=== PATIENT | male | born 1990 | race African-American/Black ===

== ENCOUNTER 2022-02-28 07:26 | Outpatient (CLI) | payer OTHER, SELFPAY ==
--- NOTE | 2022-02-28 10:03 | WPDNEUROLOGY ---
Neurology EEG Report General Information Date of Study: 02/28/22 TEST eeg DIAGNOSIS epilepsy CONDITION OF RECORDING Awake drowsy and sleep EEG NUMBER [id number] CLINICAL HISTORY Patient reports he has had 2 seizures in the last 2 months he had seizure when he was little but had not had 1 in many years EEG DESCRIPTION basic resting occipital frequency consists of low to medium voltage 10 to 11 hertz per 2nd alpha admixed with low-voltage 15 to 18 hertz per 2nd beta. Bilateral symmetrical sleep activity seen during sleep. Photic stimulation produced normal drive. Hyperventilation not done. Non paroxysmal. Nonfocal. Non Lateralizing. IMPRESSION Normal recall
== END 2022-02-28 07:27 | disposition home or self-care (01) ==
PROVIDERS: Visit Provider Psychiatry & Neurology Neurology
DX: G40.909 Epilepsy, unspecified, not intractable, without status epilepticus (principal)
CPT/HCPCS: 95816

== ENCOUNTER 2022-03-01 06:53 | Outpatient (CLI) | payer OTHER, SELFPAY ==
--- NOTE | ~2022-03-01 | MR_ITS ---
EXAMINATION: MR brain/brain stem wo/w con DATE: 03/01/2022 07:59 INDICATION: Grand mal seizure. TECHNIQUE: Magnetic resonance imaging (MRI) of the brain and brainstem was performed without and with 15 mL MultiHance intravenous contrast. COMPARISON: None. FINDINGS: The hippocampi are normal and symmetric. There is no intracranial hemorrhage, acute infarct ion, or abnormal intracranial mass lesion. The ventricles are normal in size. The mastoid air cells a re normal. The orbits are normal. The paranasal sinuses are clear. IMPRESSION: 1. Normal brain. Reviewed, dictated and finalized at location A. IMPRESSION: 1. Normal brain.
[2022-03-01 07:28] LABS: Estimated Glomerular Filt Rate > 60
== END 2022-03-01 06:54 | disposition home or self-care (01) ==
PROVIDERS: Visit Provider Psychiatry & Neurology Neurology
DX: G40.409 Other generalized epilepsy and epileptic syndromes, not intractable, without status epilepticus (principal)
CPT/HCPCS: 70553; A9577

== ENCOUNTER 2022-03-22 23:36 | Emergency (ER) | payer OTHER, SELFPAY ==
[2022-03-22 23:38] VITALS: BP 145/71; PULSE 148; RESP 22; TEMP 36.9; O2SAT 100
--- NOTE | 2022-03-22 23:46 | ECG_ITS ---
Measurements Intervals [place] Rate: 130 P: 55 FL: 169 QRS: 60 QRSD: 95 T: 5 QT: 319 QTc: 470 Interpretive Statements SINUS TACHYCARDIA NONSPECIFIC ST & T-WAVE ABNORMALITY ABNORMAL RHYTHM ECG NO PREVIOUS ECG AVAILABLE FOR COMPARISON Electronically Signed On 03-23-2022 18:13:00 CDT by Barby Hadley M.D.
[2022-03-23 00:11] LABS: Basophils Absolute Auto 0.1 K/mm3 (0.0-0.1); Basophils Percent Auto 0.6 % (0.2-1.2); Eosinophils Absolute Auto 0.1 K/mm3 (0-0.3); Eosinophils Percent Auto 1.3 % (0-4.4); Hematocrit 48.3 % (42.0-52.0); Hemoglobin 15.3 g/dL (14.0-18.0); Immature Granulocyte Absolute 0.09 K/mm3 (0.00-0.031); Immature Granulocyte Percent A 0.9 % (0-0.5); Lymphocytes Absolute Auto 4.53 K/mm3 (0.9-3.2); Lymphocytes Percent Auto 46.6 % (18.3-44.2); Mean Corpuscular HGB Conc 31.7 g/dl (32-36); Mean Corpuscular Hemoglobin 21.8 pg (26-34); Mean Corpuscular Volume 68.9 fl (80-100); Mean Platelet Volume 10.9 fl (7.4-10.4); Monocytes Absolute Auto 0.9 K/mm3 (0.1-0.6); Monocytes Percent Auto 9.1 % (2.6-8.5); Neutrophils Percent Auto 41.5 % (45.5-73.1); Platelet Count Result 246 k/mm3 (150-375); Red Blood Count 7.01 M/mm3 (4.6-6.20); Red Cell Distribution Width 16.9 % (11.5-14.5); White Blood Count 9.7 K/mm3 (4.5-10.0)
--- NOTE | 2022-03-23 00:12 | ED.SEIZURE ---
HPI - Seizure General Chief Complaint: Seizure <GREG Padilla Last Filed: 03/23/22 02:01> Stated Complaint: SZ LIKE ACTIVITY <GREG Padilla Last Filed: 03/23/22 02:01> Time Seen by Provider: 03/22/22 23:51 <GREG Padilla Last Filed: 03/23/22 02:01> Source: patient <GREG Padilla Last Filed: 03/23/22 02:01> Mode of arrival: ambulatory <GREG Padilla Last Filed: 03/23/22 02:01> Limitations: no limitations <GREG Padilla Last Filed: 03/23/22 02:01> History of Present Illness HPI Narrative: This is a 31 year old male that presents to the ER for a seizure that occurred tonight. Patient's friend reports he witnessed generalized seizure like activity that lasted for about 2 minutes. Reportedly upon EMS arrival patient was postictal. Patient is currently alert and oriented. Patient reports he has recently had several seizures. He has been evaluated by neurology for this. He had an MRI and EEG without concerning findings. Reports he thought he was supposed to be started on antiepileptic medication, but has not received a prescription yet. Denies any current complaints. <GREG Padilla Last Filed: 03/23/22 02:01> Related Data Allergies/Adverse Reactions: Allergies Allergy/AdvReac Type Severity Reaction Status Date / Time No Known Allergies Allergy Unverified 02/22/22 14:43 <GREG Padilla Last Filed: 03/23/22 02:01> Review of Systems Review of Systems: CONSTITUTIONAL: Denies fever CARDIOVASCULAR: Denies chest pain GASTROINTESTINAL: Denies vomiting NEUROLOGIC: Denies headache, numbness, or weakness. <GREG Padilla Last Filed: 03/23/22 02:01> All systems reviewed & are unremarkable except as noted in HPI and below <GREG Padilla Last Filed: 03/23/22 02:01> [facility] Past Medical History Medical History: Medical History (Updated 03/23/22 @ 01:57 by Viv French PA-C) History of seizures <Viv French PA-C - Last Filed: 03/23/22 02:01> Social History Social History: Social History Social History: never smoker Smoking status: Never smoker Alcohol intake: current Alcohol use details: rarely <Viv French PA-C - Last Filed: 03/23/22 02:01> Exam Narrative: GENERAL: Well-appearing, well-nourished, and in no acute distress. HEAD: Normocephalic, atraumatic. EYES: PERRLA and EOMI. ENT: Nares clear, no rhinorrhea or epistaxis. Mucous membranes moist. Oropharynx without tonsillar hypertrophy exudate or other lesions. Bilateral TMs pearly hwang non-bulging NECK: Supple. No adenopathy or masses. CHEST: Clear to auscultation. No respiratory distress. No wheezes rales or rhonchi HEART: Regular rate and rhythm. No murmur heard. Normal peripheral pulses. EXTREMITIES: Normal range of motion. No edema. Strength equal in bilateral upper and lower extremities (5/5) SKIN: Warm, dry, no rash. NEURO: No focal deficits. Alert and oriented x3. Cranial nerves II through XII grossly intact PSYCH: Normal mood and affect <Viv French PA-C - Last Filed: 03/23/22 02:01> Course PROMOTIONS ASSISTANT/PA Physician Supervision For this patient encounter, I reviewed the PROMOTIONS ASSISTANT or PA documentation, treatment plan, and medical decision making <Stephane Wynn MD - Last Filed: 03/23/22 03:19> Vital Signs Vital signs: Vital Signs Temperature 98.5 F 03/22/22 23:38 Pulse Rate 148 H 03/22/22 23:38 Respiratory Rate 22 H 03/22/22 23:38 Blood Pressure 145/71 H 03/22/22 23:38 Pulse Oximetry 100 03/22/22 23:38 Oxygen Delivery Room Air 03/22/22 23:38 Temperature 98.5 F 03/22/22 23:38 Pulse Rate 94 03/23/22 02:11 Respiratory Rate 23 H 03/23/22 02:11 Blood Pressure 128/84 03/23/22 02:11 Pulse Oximetry 100 03/23/22 02:11 Oxygen Delivery Room Air 03/22/22 23:38 <Viv French PA-C - Last Filed:
[2022-03-23] MEDS: SODIUM CHLORIDE 0.9% IV 1,000 ML 999 ML IV CONT (00:19)
[2022-03-23 00:21] LABS: Alanine Aminotransferase 32 U/L (6-50); Albumin Level 4.8 g/dL (3.5-5.1); Alkaline Phosphatase 78 U/L (38-126); Anion Gap 18 mmol/L (8-16); Aspartate Amino Transferase 33 U/L (17-59); Bilirubin,Total 0.7 mg/dL (0.2-1.3); Blood Urea Nitrogen 14 mg/dL (9-20); Carbon Dioxide 22 mmol/L (22-30); Chloride 103 mmol/L (98-107); Estimated CRCL calculation 99 ml/min; Estimated Glomerular Filt Rate > 60; Ethanol < 10 mg/dL (<10); Glucose 94 mg/dL (65-110); Potassium 3.2 mmol/L (3.4-5.0); Sodium 143 mmol/L (137-145)
[2022-03-23 00:22] VITALS: PULSE 104
[2022-03-23] MEDS: POTASSIUM CHLORIDE 20 MEQ TABLET 40 MEQ PO (00:29)
[2022-03-23] MEDS: levETIRAcetam 500MG/NACL 100ML 500 MG/100 ML BAG 400 MG IVPB (00:30)
[2022-03-23 00:56] VITALS: BP 126/86; PULSE 99; RESP 20; O2SAT 100
[2022-03-23 01:08] LABS: Appearance Urine Clear (Clear); Bilirubin Urine Negative (Negative); Color Urine Yellow (Yellow); Glucose Urine UA Negative (Negative); Ketones Urine Negative (Negative); Leukocyte Esterase Ur Negative LEU/UL (Negative); Nitrate Urine Negative (Negative); Protein Urine Negative (Negative); Specific Grav Ur 1.025 (1.001-1.035); Urobilinogen Urine 0.2 mg/dL (<2.0); pH Urine 5.5 (5.0-9.0)
[2022-03-23 01:09] LABS: Bacteria Urine Trace /hpf; WBC Urine 0-3 /hpf
[2022-03-23 01:10] LABS: Add Urine Microscopic? YES; Blood Urine Trace (Negative)
[2022-03-23 01:23] LABS: Amphetamine Screen Urine Negative (Negative); Barbiturate Screen Urine Negative (Negative); Benzodiazepines Screen Urine Negative (Negative); Cannabinoid Screen Urine Negative (Negative); Cocaine Screen Urine Negative (Negative); Methadone Screen Urine Negative (Negative); Opiate Screen Urine Negative (Negative); Phencyclidine Screen Urine Negative (Negative)
[2022-03-23 02:11] VITALS: BP 128/84; PULSE 94; RESP 23; O2SAT 100
== END 2022-03-23 02:12 | disposition home or self-care (01) ==
PROVIDERS: Physician Assistant; Emergency Provider Emergency Medicine
DX: R56.9 Unspecified convulsions (principal); R00.0 Tachycardia, unspecified; R94.31 Abnormal electrocardiogram [ECG] [EKG]
CPT/HCPCS: 36415; 80053; 80307; 81001; 85025; 93005; 96361; 96365; 99284; A9270; J1953; J7030

== ENCOUNTER 2022-03-30 12:56 | Emergency (ER) | payer OTHER, SELFPAY ==
[2022-03-30] VITALS (7 sets, daily range): BP systolic 101–136; BP diastolic 52–75; PULSE 90–129; RESP 12–18; TEMP 37.7–39.5; O2SAT 99–100
--- NOTE | ~2022-03-30 | XR_ITS ---
EXAMINATION: XR chest 1V portable DATE: 03/30/2022 14:49 INDICATION: Cough and fever. TECHNIQUE: A single frontal view of the chest was obtained. COMPARISON: None. FINDINGS: The chest demonstrates clear lungs without pneumonia, pleural effusion, or pneumothorax. Th e heart size is normal. IMPRESSION: 1. No acute cardiopulmonary disease. Reviewed, dictated and finalized at location A.
--- NOTE | 2022-03-30 14:52 | ED.GENADULT ---
HPI - General Adult General Chief complaint: Headache Stated complaint: headache, vomiting Time Seen by Provider: 03/30/22 14:20 Source: patient, RN notes reviewed and old records reviewed Mode of arrival: ambulatory Limitations: no limitations History of Present Illness HPI narrative: This is a male with history of seizures who presents for evaluation of fever, sore throat and headache. Patient developed fever, chills, body aches, sore throat and headache yesterday. He reports he has been taking ibuprofen for headache a fever. Yesterday his headache resolved after taking ibuprofen. He has frontal headache again today. He last took ibuprofen 200 mg at 7 am this morning.He rates his headache as 7/10 currently. He has mild cough, body aches. His sore throat has resolved , and he denies chest pain or sob. He denies sick contacts. He states he has been taking his seizure medication. Related Data Allergies Allergy/AdvReac Type Severity Reaction Status Date / Time No Known Allergies Allergy Verified 03/30/22 16:07 Review of Systems Review of Systems: All systems reviewed & are unremarkable except as noted in HPI and below Constitutional: Constitutional: Reports chills, Reports fatigue and Reports fever(s) ENT: Reports nasal congestion and Reports sore throat Cardiovascular: Cardiovascular: Denies chest pain Respiratory: Respiratory: Reports cough and Denies dyspnea Gastrointestinal: Gastrointestinal: Reports abdominal pain, Reports nausea and Reports vomiting Genitourinary: Genitourinary: Denies hematuria and Denies dysuria Musculoskeletal: Musculoskeletal: Reports myalgias Integumentary/Breasts: Skin/Breast: Denies erythema, Denies rash and Denies skin ulcer Neurologic: Denies syncope and Reports headache(s) PMFSH Past Medical History Medical History (Updated 03/30/22 @ 18:39 by Nereyda Prieto MD) History of seizures Social History Social History Social History: never smoker Smoking status: Never smoker Alcohol intake: current Alcohol use details: rarely Exam Narrative: GENERAL: Well-appearing, well-nourished, and in no acute distress. HEAD: Normocephalic, atraumatic EYES: PERRLA and EOMI, conjunctiva clear without discharge EARS: TM's clear bilaterally without erythema or dullness NOSE: Nares clear, no rhinorrhea or epistaxis THROAT:Mucous membranes moist, Oropharynx normal without erythema, exudate, peritonsillar swelling or fluctuance NECK: Supple, without lymphadenopathy or mass RESPIRATORY: No respiratory distress, Airway patent, Respirations non-labored, Clear to auscultation without rales, rhonchi or wheeze HEART: tachycardic rate and regular rhythm. No murmur heard. Normal peripheral pulses. ABDOMEN: Soft, nontender, nondistended, normal active bowel sounds. No masses. No rebound or guarding, No organomegaly. EXTREMITIES: No edema, normal strength with full range of motion. SKIN: Warm, dry, normal color without rash NEURO: Alert and oriented x3. CN 2-12 grossly intact. No focal deficits. PSYCH: Normal mood and affect. Course Reevaluation(s) Reevaluation #1: PAtient states his headache has resolved. He still has some tachycardia so will given more fluids and tylenol. He was made aware that he has covid as cause of his symptoms. Date: 03/30/22 Time: 17:44 Vital Signs Vital signs: Vital Signs Temperature 101.4 F H 03/30/22 13:11 Pulse Rate 129 H 03/30/22 13:11 Respiratory Rate 16 03/30/22 13:11 Blood Pressure 110/61 03/30/22 13:11 Pulse Oximetry 100 03/30/22 13:11 Oxygen Delivery Room Air 03/30/22 13:11 Temperature 100 F H 03/30/22 18:03 Pulse Rate 100 03/30/22 18:57 Respiratory Rate 14 03/30/22 18:57 Blood Pressure 113/68 03/30/22 18:57 Pulse Oximetry 100 03/30/22 18:57 Oxygen Delivery Room Air 03/30/22 13:11 Medical Decision Making Vital Signs Vital Sign
[2022-03-30] MEDS: LACTATED RINGERS 1,000 ML 999 ML IV CONT (14:56)
[2022-03-30] MEDS: METOCLOPRAMIDE HCL INJ 10 MG/2 ML VIAL IV PUSH (14:57)
[2022-03-30] MEDS: KETOROLAC 30 MG/ML VIAL (*BKC) IV PUSH (14:57)
[2022-03-30] MEDS: diphenhydrAMINE HCl INJ 50 MG/ML VIAL 25 MG IV PUSH (14:57)
[2022-03-30 15:26] LABS: Influenza A QL RT-PCR Negative (Negative); Influenza B QL RT-PCR Negative (Negative); SARS-CoV-2 RNA PCR Positive
[2022-03-30] MEDS: SODIUM CHLORIDE 0.9% IV 1,000 ML 999 ML IV CONT (17:32)
== END 2022-03-30 18:59 | disposition home or self-care (01) ==
PROVIDERS: Emergency Provider General Practice
DX: U07.1 COVID-19 (principal); G40.909 Epilepsy, unspecified, not intractable, without status epilepticus
CPT/HCPCS: 71045; 87081; 87502; 96361; 96365; 96375; 99284; C9803; J0131; J1200; J1885; J2765; J7030; J7120; U0003; U0005

== ENCOUNTER 2023-01-11 08:14 | Emergency (ER) | payer OTHER, SELFPAY ==
[2023-01-11] VITALS (17 sets, daily range): BP systolic 112–154; BP diastolic 51–94; PULSE 58–98; RESP 11–22; TEMP 36.1–36.6; O2SAT 95–100
--- NOTE | ~2023-01-11 | XR_ITS ---
EXAMINATION: XR shoulder RT 1V DATE: 01/11/2023 08:47 INDICATION: Injury following seizure with right shoulder pain TECHNIQUE: A single AP view of the right shoulder was obtained. COMPARISON: None FINDINGS: Avulsion fracture involving the right greater tuberosity with approximately 1.5 cm separation of the fragment from the humeral head. The humeral head objects significantly more medial than normal with r espect to the glenoid consistent with dislocation. The absence of orthogonal imaging remains indeterm inate whether this is anterior posterior dislocation. Given the pattern of injury the likely on oppos ed traction from the subscapularis tendon would favor an anterior dislocation. No other fractures marianne ntified. Acromioclavicular joint is normal. IMPRESSION: 1.5 cm distraction of an avulsion fracture of the greater tuberosity of the right humerus with second ana dislocation of the humeral head most likely anterior. Consider obtaining transscapular Y view for more definitive determination of the direction of displacement. Reviewed, dictated and finalized at location B. IMPRESSION: 1.5 cm distraction of an avulsion fracture of the greater tuberosity of the rig ht humerus with secondary dislocation of the humeral head most likely anterior. Consider obtaining transscapular Y view for more definitive determination of t he direction of displacement.
--- NOTE | ~2023-01-11 | XR_ITS ---
EXAMINATION: XR shoulder RT 1V DATE: 01/11/2023 11:22 INDICATION: Postreduction right humeral fracture dislocation TECHNIQUE: AP view of the right shoulder was obtained. COMPARISON: None FINDINGS: No significant change in an anterior right glenohumeral dislocation of the posterolateral displacemen t of the avulsed greater tuberosity fracture fragment. Right lung is clear. IMPRESSION: No significant change in either the anteriorly dislocated right glenohumeral joint or posterolaterall y and displaced greater tuberosity avulsion fracture fragment. Reviewed, dictated and finalized at location B. IMPRESSION: No significant change in either the anteriorly dislocated right glenohumeral shante int or posterolaterally and displaced greater tuberosity avulsion fracture frag ment.
--- NOTE | ~2023-01-11 | XR_ITS ---
EXAMINATION: XR shoulder RT min 2V DATE: 01/11/2023 09:24 INDICATION: Right shoulder fracture dislocation TECHNIQUE: AP and transscapular Y views of the right shoulder were obtained. COMPARISON: 01/11/2023 FINDINGS: Again seen is an avulsion fracture of the greater tuberosity of the right humerus with posterolateral distraction. There is anterior dislocation of the right humeral head with respect to the glenoid. No other fractures identified. Acromioclavicular joint is normal. Visualized portion of the right lung is clear. IMPRESSION: Avulsion fracture of the right greater tuberosity with anterior dislocation of the right humeral head . Reviewed, dictated and finalized at location B. IMPRESSION: Avulsion fracture of the right greater tuberosity with anterior dislocation of the right humeral head.
--- NOTE | 2023-01-11 09:44 | ED.GENADULT ---
HPI - General Adult General Chief complaint: Extremity Injury, Upper <GREG Barfield Last Filed: 01/11/23 18:03> Stated complaint: right shoulder pain - injury from seizure <GREG Barfield Last Filed: 01/11/23 18:03> Time Seen by Provider: 01/11/23 08:54 <Donte Myers PA-C - Last Filed: 01/11/23 18:03> Source: patient <GREG Barfield Last Filed: 01/11/23 18:03> Mode of arrival: ambulatory <GREG Barfield Last Filed: 01/11/23 18:03> Limitations: no limitations <Donte Myers PA-C - Last Filed: 01/11/23 18:03> History of Present Illness HPI narrative: This is a 32-year-old male who presents to the ED with chief complaint of right shoulder pain onset at 0300 last night. Patient reports that he has a known seizure disorder and had a seizure last night that caused this injury. He states he woke up and had trouble moving the shoulder and a lot of pain. Denies any further site of pain or injury. Denies any further seizures. He takes Keppra regularly for seizures. He is accompanied today by his spouse who witnessed the seizure. Patient states that he has been fairly compliant with his medications, however may have missed a dose here or there. Denies any fevers, chills, numbness, weakness. <Donte Myers PA-C - Last Filed: 01/11/23 18:03> Related Data Allergies/adverse reactions: Allergies Allergy/AdvReac Type Severity Reaction Status Date / Time No Known Allergies Allergy Verified 01/11/23 09:01 <Donte Myers PA-C - Last Filed: 01/11/23 18:03> Review of Systems Review of Systems: CONSTITUTIONAL: Denies fever, chills, or sweats. EYES: Denies visual changes, redness, or discharge. ENT: Denies rhinorrhea, congestion, sore throat, or otalgia. CARDIOVASCULAR: Denies chest pain, palpitations, or edema. RESPIRATORY: Denies cough or dyspnea. GASTROINTESTINAL: Denies abdominal pain, nausea, vomiting, or diarrhea. GENITOURINARY: Denies dysuria or hematuria. SKIN: Denies rash or itching. MUSCULOSKELETAL: Denies back pain, joint pain, or myalgia. NEUROLOGIC: Denies headache, numbness, dizziness, or weakness. PSYCHIATRIC: Denies anxiety or depression. <Donte Myers PA-C - Last Filed: 01/11/23 18:03> [facility] Past Medical History Medical History: Medical History (Updated 01/11/23 @ 12:35 by Donte Myers PA-C) History of seizures <Donte Myers PA-C - Last Filed: 01/11/23 18:03> Social History Social History: Social History Social History: never smoker Smoking status: Never smoker Alcohol intake: current Alcohol use details: rarely <Donte Myers PA-C - Last Filed: 01/11/23 18:03> Course INSIDE UPHOLSTERER/PA Physician Supervision This visit was performed by both the physician and an APC. I performed all aspects of the MDM as documented <Timbo Juan MD - Last Filed: 01/11/23 18:38> Vital Signs Vital signs: Vital Signs Temperature 36.6 C 01/11/23 08:30 Pulse Rate 96 01/11/23 08:30 Respiratory Rate 16 01/11/23 08:30 Blood Pressure 144/93 H 01/11/23 08:30 Pulse Oximetry 99 01/11/23 08:30 Oxygen Delivery Room Air 01/11/23 08:30 Temperature 36.1 C L 01/11/23 10:55 Pulse Rate 77 01/11/23 13:31 Respiratory Rate 17 01/11/23 13:31 Blood Pressure 150/94 H 01/11/23 13:31 Pulse Oximetry 100 01/11/23 13:31 Oxygen Delivery Room Air 01/11/23 12:05 Oxygen Flow Rate 2 01/11/23 11:50 <Donte Myers PA-C - Last Filed: 01/11/23 18:03> Vital Signs Temperature 36.6 C 01/11/23 08:30 Pulse Rate 96 01/11/23 08:30 Respiratory Rate 16 01/11/23 08:30 Blood Pressure 144/93 H 01/11/23 08:30 Pulse Oximetry 99 01/11/23 08:30 Oxygen Delivery Room Air 01/11/23 08:30 Temperature 36.1 C L 01/11/23 10:55 Pulse Rate 77 01/11/23 13:31 Respiratory Rate 17 01/11/23 13:31 Blood Pressure 150/94 H 01/11/23
[2023-01-11 10:21] LABS: Basophils Percent Auto 0.2 % (0.2-1.2); Eosinophils Percent Auto 0.1 % (0-4.4); Hematocrit 46.6 % (42.0-52.0); Hemoglobin 14.9 g/dL (14.0-18.0); Immature Granulocyte Absolute 0.04 K/mm3 (0.00-0.031); Immature Granulocyte Percent A 0.4 % (0-0.5); Lymphocytes Absolute Auto 0.76 K/mm3 (0.9-3.2); Lymphocytes Percent Auto 7.7 % (18.3-44.2); Mean Corpuscular Hemoglobin 22.2 pg (26-34); Mean Corpuscular Volume 69.3 fl (80-100); Mean Platelet Volume 11.2 fl (7.4-10.4); Monocytes Absolute Auto 0.4 K/mm3 (0.1-0.6); Monocytes Percent Auto 4.4 % (2.6-8.5); Neutrophils Absolute Auto 8.6 K/mm3 (1.3-6.7); Neutrophils Percent Auto 87.2 % (45.5-73.1); Platelet Count Result 220 k/mm3 (150-375); Red Blood Count 6.72 M/mm3 (4.6-6.20); Red Cell Distribution Width 16.8 % (11.5-14.5); White Blood Count 9.9 K/mm3 (4.5-10.0)
[2023-01-11] MEDS: fentaNYL CITRATE INJ (*CRX) 100 MCG/2 ML VIAL 50 MCG IV PUSH ×3 (10:28→11:46)
[2023-01-11 10:31] LABS: Alanine Aminotransferase 48 U/L (6-50); Albumin Level 4.6 g/dL (3.5-5.1); Alkaline Phosphatase 71 U/L (38-126); Anion Gap 8 mmol/L (8-16); Aspartate Amino Transferase 37 U/L (17-59); Bilirubin,Total 0.8 mg/dL (0.2-1.3); Blood Urea Nitrogen 13 mg/dL (9-20); Calcium 8.4 mg/dL (8.4-10.2); Carbon Dioxide 25 mmol/L (22-30); Chloride 106 mmol/L (98-107); Estimated CRCL calculation 114 ml/min; Estimated Glomerular Filt Rate > 60; Glucose 98 mg/dL (65-110); Potassium 3.9 mmol/L (3.4-5.0); Sodium 139 mmol/L (137-145)
[2023-01-11 10:36] LABS: Anisocytosis 1+ (NORMAL); Hypochromasia 1+ (NORMAL); Microcytosis 1+ (NORMAL); Platelet Estimate Adequate (Adequate)
[2023-01-11 10:37] LABS: Schistocytes None Seen (NORMAL)
[2023-01-11] MEDS: SODIUM CHLORIDE 0.9% IV 1,000 ML 30 ML (10:56)
[2023-01-11] MEDS: PROPOFOL IV EMULSION 200 MG/20 ML VIAL 80 MG IV PUSH (11:10)
== END 2023-01-11 13:55 | disposition home or self-care (01) ==
PROVIDERS: Emergency Provider Physician Assistant; PCP Psychiatry & Neurology Neurology
DX: S42.251A Displaced fracture of greater tuberosity of right humerus, initial encounter for closed fracture (principal); G40.909 Epilepsy, unspecified, not intractable, without status epilepticus; X58.XXXA Exposure to other specified factors, initial encounter
CPT/HCPCS: 23665; 36415; 73020; 73030; 80053; 85025; 96374; 99285; J2704; J3010; J7030